=== PATIENT | female | born 1990 | race African-American/Black ===

== ENCOUNTER 2023-05-07 04:08 | Day surgery (SDC) | payer OTHER ==
[2023-05-03 12:22] VITALS: BMI 22.4
[2023-05-07] MEDS ORDERED: MIDAZOLAM HCL 2 MG/2 ML SINGLE DOSE VIAL ONE (08:41)
[2023-05-07] MEDS ORDERED: PROPOFOL 20 ML ONE (08:41)
[2023-05-07] MEDS ORDERED: LIDOCAINE HCL/PF 2% SDV 5ML VIAL ONE (09:03)
[2023-05-07] MEDS ORDERED: KETOROLAC TROMETHAMINE 30 MG/1 ML VIAL ONE (09:03)
[2023-05-07] MEDS ORDERED: ONDANSETRON 4 MG/2 ML VIAL ONE (09:03)
[2023-05-07] MEDS ORDERED: DEXAMETHASONE SOD PHOSPHATE 4 MG/1 ML VIAL ONE (09:03)
[2023-05-07] MEDS ORDERED: IBUPROFEN 800 MG/8 ML IJ IVPB PRN (09:10)
[2023-05-07] MEDS ORDERED: ONDANSETRON 4 MG/2 ML VIAL IVPUSH PRN ×2 (09:10→09:50)
[2023-05-07] MEDS ORDERED: IBUPROFEN 600 MG TABLET (FP) PO PRN (09:10)
[2023-05-07] MEDS ORDERED: oxyCODONE HCL 5 MG TABLET PO PRN ×2 (09:10→09:50)
[2023-05-07] MEDS ORDERED: ELECTROLYTE-148 SOLN 1,000 ML IV SCH (09:15)
[2023-05-07] MEDS: DOXYCYCLINE HYCLATE 100 MG VIAL IVPB ONE (09:16)
[2023-05-07] MEDS ORDERED: ACETAMINOPHEN INJECTION 100 ML IVPB ONE (09:19)
[2023-05-07] MEDS ORDERED: LACTATED RINGERS SOLUTION 1,000 ML IV SCH (10:00)
[2023-05-07 10:50] VITALS: RESP 20
[2023-05-07 11:48] VITALS: BP 117/60; PULSE 88; TEMP 98
== END 2023-05-07 11:52 | disposition home or self-care (01) ==
LOC: JASU-SURG 04:08
PROVIDERS: ATTEND Obstetrics & Gynecology
PROC: 10D17ZZ Extraction of Products of Conception, Retained, Via Natural or Artificial Opening (ICD-10-PCS; principal; 2023-05-07 10:00)
DX: O07.4 Failed attempted termination of pregnancy without complication (principal)
CPT/HCPCS: 76856-TC; 76998-TC; 86850; 86900; 86901; 88305-TC; 94760; J0131